=== PATIENT | male | born 1995 | race Caucasian/White ===

== ENCOUNTER 2021-02-26 10:22 | Emergency (ER) | payer OTHER, SELFPAY ==
--- NOTE | 2021-02-26 10:32 | ED.URI ---
HPI - URI/Sore Throat General Chief Complaint: Upper Respiratory Infection Stated Complaint: sorethroat,fever Time Seen by Provider: 02/26/21 10:32 Source: patient and RN notes reviewed History of Present Illness HPI Narrative: Patient is a 25-year-old male who presents the urgent care with complaints of a sore throat and fever for the last 2 days. Patient states that he always gets strep . Patient denies of any other upper respiratory complaints. Denies of any exposures to Covid. Patient states he has been vaccinated for Covid. States he has been taking Tylenol and ibuprofen. No other acute complaints. No acute distress noted. Patient read the plan of care. Some parts of this dictation were generated by voice recognition software and may contain typographical and/or grammatical inaccuracies. Related Data Home Medications Medication Instructions Recorded Confirmed guanfacine 2 mg PO DAILY 02/26/21 02/26/21 topiramate 25 mg BID 02/26/21 02/26/21 Allergies Allergy/AdvReac Type Severity Reaction Status Date / Time No Known Allergies Allergy Verified 02/26/21 10:58 Review of Systems Review of Systems: CONSTITUTIONAL: Reports a fever EYES: Denies visual changes, redness, or discharge. ENT: Denies rhinorrhea, congestion, otalgia. Reports of sore throat CARDIOVASCULAR: Denies chest pain, palpitations, or edema. RESPIRATORY: Denies cough or dyspnea. GASTROINTESTINAL: Denies abdominal pain, nausea, vomiting, or diarrhea. GENITOURINARY: Denies dysuria or hematuria. SKIN: Denies rash or itching. MUSCULOSKELETAL: Denies back pain, joint pain, or myalgia. NEUROLOGIC: Denies headache, numbness, or weakness. All other systems reviewed are negative, except as documented in HPI. [facility] Family History Family History (Updated 10/29/13 @ 07:13 by DOCTOR UNKNOWN) Sibling Asthma Social History Social History Smoking status: Current every day smoker Alcohol intake: never Substance use type: marijuana Comments At the time of my signature, I reviewed and agree with the nursing past medical, surgical, social, and family history. There is no relevant family history pertinent to the patient complaint. Exam Narrative: GENERAL: This is a well-nourished, well-developed patient, in no apparent distress. HEAD: normocephalic, atraumatic. EYES: PERRL. Sclera clear/white. Vision is grossly intact. EARS: External ears normal, auditory canals clear and without drainage, TMs normal without perforation. Hearing grossly intact. NOSE: External nose normal with no obvious nasal discharge, nares without redness, no rhinorrhea. THROAT: Mucous membranes moist. Moderate erythema noted to posterior pharynx with moderate postnasal drainage. No exudate. NECK: Neck supple, non-tender without lymphadenopathy CARDIOVASCULAR: Regular rate and rhythm without murmurs, gallops, or rubs. RESPIRATORY: Clear to auscultation. Breath sounds equal bilaterally. No wheezes, rales, or rhonchi. SKIN: warm, intact with no suspicious lesions or rash, good texture and turgor. NEURO: awake, alert, and oriented to person, place and time. There were no obvious focal neurologic abnormalities. EXTREMITIES: No clubbing, cyanosis, or edema. Course Vital Signs Vital signs: Vital Signs Temperature 97.5 F L 02/26/21 10:45 Pulse Rate 88 02/26/21 10:45 Respiratory Rate 18 02/26/21 10:45 Blood Pressure 139/78 02/26/21 10:45 Pulse Oximetry 100 02/26/21 10:45 Temperature 97.5 F L 02/26/21 10:45 Pulse Rate 88 02/26/21 10:45 Respiratory Rate 18 02/26/21 10:45 Blood Pressure 139/78 02/26/21 10:45 Pulse Oximetry 100 02/26/21 10:45 Reviewed MDM - URI/Sore Throat MDM Narrative Medical decision making narrative: Reviewed lab results with patient. He is aware that strep swab was negative. Educated patient on culture we will call within 72 hours if culture is positive and antibiotics necessary. Advised the patient to continue Tyl
[2021-02-26 10:45] VITALS: BP 139/78; PULSE 88; RESP 18; TEMP 36.4; O2SAT 100
== END 2021-02-26 11:11 | disposition home or self-care (01) ==
PROVIDERS: Emergency Provider Nurse Practitioner Family; PCP Family Medicine
DX: J02.9 Acute pharyngitis, unspecified (principal); Z20.822 Contact with and (suspected) exposure to COVID-19; F17.200 Nicotine dependence, unspecified, uncomplicated
CPT/HCPCS: 87081; 87880; 99213; G0463

== ENCOUNTER → 2021-02-27 07:51 | Outpatient (CLI) | payer OTHER, SELFPAY ==
[2021-02-27 19:04] LABS: SARS-CoV-2 RNA PCR Positive
== END ==
PROVIDERS: PCP Family Medicine; Visit Provider Nurse Practitioner Family
DX: U07.1 COVID-19 (principal); J02.9 Acute pharyngitis, unspecified
CPT/HCPCS: C9803; U0003; U0005

== ENCOUNTER 2022-08-07 10:36 | Emergency (ER) | payer SELFPAY ==
--- NOTE | 2022-08-07 10:45 | ED.SKABFB ---
HPI - Skin/Abscess/Foreign Bdy General Chief complaint: Urogenital-Male Stated complaint: cyst in nose,gum pain Time Seen by Provider: 08/07/22 10:45 Source: patient Mode of arrival: ambulatory Limitations: no limitations History of Present Illness HPI narrative: patient is a 26-year-old male who presents with abscess inside of left nostril. Patient states it started Saturday and has grown in size, patient popped it last night but states it filled back up this morning. Reports pain is surrounding left side of nose. Patient also reports burning with urination since Saturday but has had no frequency, urgency or blood in urine. Patient is not sexually active and has no concern for STDs. Denies any fever, chills, back pain, nausea, vomiting. Related Data Allergies Allergy/AdvReac Type Severity Reaction Status Date / Time No Known Allergies Allergy Verified 08/07/22 10:51 Review of Systems Review of Systems: All systems reviewed & are unremarkable except as noted in HPI and below Constitutional: Constitutional: Denies body ache(s), Denies chills, Denies fatigue, Denies fever(s), Denies headache(s), Denies malaise and Denies weakness Eyes: Eyes: Denies blurry vision, Denies irritation and Denies loss of vision ENT: Denies otalgia, Reports facial pain, Denies headache(s), Denies nasal discharge, Denies sinus pain and Denies sore throat Cardiovascular: Cardiovascular: Denies chest pain, Denies irregular heart rhythm and Denies dyspnea Respiratory: Respiratory: Denies dyspnea Gastrointestinal: Gastrointestinal: Denies abdominal pain, Denies melena, Denies hematochezia, Denies diarrhea, Denies nausea and Denies vomiting Genitourinary: Genitourinary: Reports dysuria Musculoskeletal: Musculoskeletal: Denies back pain, Denies myalgias and Denies arthralgias Integumentary/Breasts: Skin/Breast: Denies pruritus and Denies rash Neurologic: Denies headache(s), Denies loss of vision and Denies weakness Psychiatric: Psychiatric: Reports no additional psychiatric complaints Endocrine: Endocrine: Denies fatigue [facility] Family History Family History (Updated 10/29/13 @ 07:13 by DOCTOR UNKNOWN) Sibling Asthma Social History Social History Smoking status: Current every day smoker Alcohol intake: never Substance use type: marijuana Comments At time of signature, agree with nursing past medical, surgical, social and family history. There is no relevant family history pertinent to the presenting complaint. Exam Const: General: cooperative, healthy appearing, comfortable, no acute distress and well nourished Nutritional Appearance: well nourished Orientation/consciousness: patient oriented x3 Limitations: no limitations HENMT: Head: normal to inspection, normocephalic and atraumatic Ears: hearing grossly normal bilaterally and external ears normal Face/Nose/Sinus: Normal external nose present, normal facial exam and face symmetric Nose image: 1. Small pimple like vesicle noted. Crusted over with no active drainage. 2. This area of induration, no fluctuance. No erythema or warmth noted Face and sinus: normal facial exam and face symmetric Mouth: Yes lip normal Eyes: General: appearance normal, both eyes and all related structures Alignment and Position: alignment normal and position normal Periorbital: periorbital findings normal Eyelids: eyelids normal Pupils: Equal, round and reactive pupils present EOM: EOMs intact bilaterally Neck: Neck: normal visual inspection, full ROM and supple Chest: Chest palpation & inspection: normal inspection of the chest Resp: Effort & Inspection: normal respiratory effort and able to speak in complete sentences Auscultation: clear to auscultation bilaterally Cardio: Rate: regular rate Rhythm: regular rhythm Heart sounds: S1 normal heart sound present and S2 normal heart sound present GI: Inspection: normal to inspection Skin: General skin exam: normal color and
[2022-08-07 10:52] VITALS: BP 148/73; PULSE 74; RESP 16; TEMP 36.6; O2SAT 99
== END 2022-08-07 12:17 | disposition home or self-care (01) ==
PROVIDERS: Emergency Provider Nurse Practitioner Family
DX: J34.0 Abscess, furuncle and carbuncle of nose (principal); R30.0 Dysuria; F17.200 Nicotine dependence, unspecified, uncomplicated
CPT/HCPCS: 81003; 99213; G0463

== ENCOUNTER 2023-05-30 10:22 | Emergency (ER) | payer SELFPAY ==
--- NOTE | 2023-05-30 10:24 | ED.UPPEXIN ---
HPI - Extremity Injury (Upper) General Chief Complaint: Extremity Problem,Nontraumatic Stated Complaint: Right Shoulder Pain Time Seen by Provider: 05/30/23 10:22 Source: patient Mode of arrival: ambulatory Limitations: no limitations History of Present Illness HPI narrative: Patient is a 27-year-old male that presents with right shoulder pain for 4 days. Patient denies any obvious injury. Patient has been lifting in having repetitive motion at work along with picking up 2-year-old at home. Denies any numbness, tingling or weakness to extremity. Has taken Tylenol and ibuprofen with no relief. Reports movement worsens pain. Related Data Allergies Allergy/AdvReac Type Severity Reaction Status Date / Time No Known Allergies Allergy Verified 05/30/23 10:37 Review of Systems Review of Systems: All systems reviewed & are unremarkable except as noted in HPI and below Constitutional: Constitutional: Denies body ache(s), Denies chills, Denies fatigue, Denies fever(s), Denies headache(s), Denies malaise and Denies weakness Eyes: Eyes: Denies blurry vision, Denies irritation and Denies loss of vision ENT: Denies otalgia, Denies headache(s), Denies nasal discharge, Denies sinus pain and Denies sore throat Cardiovascular: Cardiovascular: Denies chest pain, Denies irregular heart rhythm and Denies dyspnea Respiratory: Respiratory: Denies dyspnea Gastrointestinal: Gastrointestinal: Denies abdominal pain, Denies melena, Denies hematochezia, Denies diarrhea, Denies nausea and Denies vomiting Musculoskeletal: Musculoskeletal: Denies back pain, Denies myalgias and Reports arthralgias Integumentary/Breasts: Skin/Breast: Denies pruritus and Denies rash Neurologic: Denies headache(s), Denies loss of vision and Denies weakness Psychiatric: Psychiatric: Reports no additional psychiatric complaints Endocrine: Endocrine: Denies fatigue PMFSH Family History Family History Sibling Asthma Social History Social History Smoking status: Current every day smoker Alcohol intake: never Substance use type: marijuana Comments At time of signature, agree with nursing past medical, surgical, social and family history. There is no relevant family history pertinent to the presenting complaint. Exam Const: General: cooperative, healthy appearing, comfortable, no acute distress and well nourished Nutritional Appearance: well nourished Orientation/consciousness: patient oriented x3 Limitations: no limitations HENMT: Head: normal to inspection, normocephalic and atraumatic Ears: hearing grossly normal bilaterally and external ears normal Face/Nose/Sinus: Normal external nose present, normal facial exam and face symmetric Face and sinus: normal facial exam and face symmetric Mouth: Yes lip normal Eyes: General: appearance normal, both eyes and all related structures Alignment and Position: alignment normal and position normal Periorbital: periorbital findings normal Eyelids: eyelids normal Pupils: Equal, round and reactive pupils present EOM: EOMs intact bilaterally Neck: Neck: normal visual inspection, full ROM and supple Chest: Chest palpation & inspection: normal inspection of the chest Resp: Effort & Inspection: normal respiratory effort and able to speak in complete sentences Auscultation: clear to auscultation bilaterally Cardio: Rate: regular rate Rhythm: regular rhythm Heart sounds: S1 normal heart sound present and S2 normal heart sound present GI: Inspection: normal to inspection Skin: General skin exam: normal color and no rashes or lesions noted Neuro: General: patient oriented x3 and moves all extremities Cranial nerves: Yes Equal, round and reactive pupils present Speech: normal speech Gait exam (Neuro): Normal gait present Extrem: General: normal to inspection, full ROM and no edema Right upper ext
[2023-05-30 10:31] VITALS: BP 113/72; PULSE 62; RESP 18; TEMP 36.7; O2SAT 100
== END 2023-05-30 11:06 | disposition home or self-care (01) ==
PROVIDERS: Emergency Provider Nurse Practitioner Family
DX: S46.911A Strain of unspecified muscle, fascia and tendon at shoulder and upper arm level, right arm, initial encounter (principal); X58.XXXA Exposure to other specified factors, initial encounter; F17.200 Nicotine dependence, unspecified, uncomplicated
CPT/HCPCS: 99213; G0463

== ENCOUNTER 2023-07-14 14:39 | Emergency (ER) | payer SELFPAY ==
[2023-07-14 14:48] VITALS: BP 135/82; PULSE 52; RESP 18; TEMP 36.5; O2SAT 100
[2023-07-14 14:49] VITALS: BP 135/82; PULSE 52; RESP 18; TEMP 36.5; O2SAT 100
--- NOTE | 2023-07-14 15:04 | ED.DENTAL ---
HPI - Dental/Oral General Chief complaint: Dental/Oral Stated complaint: Toothache Time Seen by Provider: 07/14/23 14:55 Source: patient and RN notes reviewed Mode of arrival: ambulatory Limitations: no limitations History of Present Illness HPI Narrative: Patient presents today complaining of right upper tooth pain since yesterday. States he has multiple broken teeth, but does localize his pain to 1 area. Currently rates his pain 10/10. He has been taking excessive amounts of ibuprofen over the last 24 hours. He also took 2 doses of leftover amoxicillin. Denies fever, difficulty swallowing, or shortness of breath. States he does have a dentist and has left voicemail to make an appointment. Related Data Allergies Allergy/AdvReac Type Severity Reaction Status Date / Time No Known Allergies Allergy Verified 07/14/23 14:49 Review of Systems Review of Systems: CONSTITUTIONAL: Denies body aches, fever, chills, or sweats. EYES: Denies visual changes, redness, or discharge. ENT: Denies rhinorrhea, congestion, sore throat, or otalgia.+ tooth pain CARDIOVASCULAR: Denies chest pain, palpitations, or edema. RESPIRATORY: Denies cough or dyspnea. GASTROINTESTINAL: Denies abdominal pain, nausea, vomiting, or diarrhea. GENITOURINARY: Denies dysuria or hematuria. SKIN: Denies rash, itching, or wounds. MUSCULOSKELETAL: Denies back pain, joint pain, or myalgia. NEUROLOGIC: Denies headache, numbness, tingling, or weakness. PSYCH: Denies depression or anxiety. [facility] Family History Family History Sibling Asthma Social History Social History Smoking status: Current every day smoker Alcohol intake: never Substance use type: marijuana Comments At time of signature, I have reviewed and agree with nursing past medical, surgical, social and family history unless otherwise noted. Please see nursing chart for further information. There is no relevant family history pertinent to the presenting complaint Exam Narrative: GENERAL: Well-appearing, well-nourished, and in no acute distress. HEAD: Normocephalic, atraumatic. EYES: EOMI. No redness or drainage. Conjunctivae normal. ENT: Mucous membranes pink and moist. Gross dental decay. Localized pain to tooth #3. Affected tooth has a large brown cavity in the center. No trismus or facial swelling noted. No gingival swelling or obvious periapical abscess noted. NECK: Normal AROM. CHEST: No respiratory distress. EXTREMITIES: Normal range of motion. No edema. SKIN: Warm, dry, no rash. Capillary refill normal. Normal skin turgor. NEURO: No focal deficits. Alert and oriented x3. Gait steady. PSYCH: Normal affect. No signs of depression or anxiety. Course Course Level of Care: Express Care Visit Vital Signs Vital signs: Vital Signs Temperature 97.7 F 07/14/23 14:48 Pulse Rate 52 L 07/14/23 14:48 Respiratory Rate 18 07/14/23 14:48 Blood Pressure 135/82 07/14/23 14:48 Pulse Oximetry 100 07/14/23 14:48 Oxygen Delivery Room Air 07/14/23 14:48 Temperature 97.7 F 07/14/23 14:49 Pulse Rate 52 L 07/14/23 14:49 Respiratory Rate 18 07/14/23 14:49 Blood Pressure 135/82 07/14/23 14:49 Pulse Oximetry 100 07/14/23 14:49 Oxygen Delivery Room Air 07/14/23 14:49 Reviewed MDM - Dental/Oral MDM Narrative Medical decision making narrative: Patient will be treated with a course of amoxicillin for likely infection. He has been recommended to follow-up with a dentist as soon as possible. Anticipatory guidance given. Differential Diagnosis Differential diagnosis: Likely gingival abscess, dental caries, toothache, dental abscess and fracture of tooth Critical Care Time Critical Care Time Critical Care Time: No Discharge Plan Discharge Clinical Impression: Infected dental caries Patient Disposition: Home, [place]
== END 2023-07-14 15:12 | disposition home or self-care (01) ==
PROVIDERS: Emergency Provider Nurse Practitioner
DX: K02.9 Dental caries, unspecified (principal); F17.200 Nicotine dependence, unspecified, uncomplicated; F12.90 Cannabis use, unspecified, uncomplicated
CPT/HCPCS: 99213; G0463

== ENCOUNTER 2023-10-16 13:45 | Emergency (ER) | payer SELFPAY ==
--- NOTE | ~2023-10-16 | XR_ITS ---
XR chest 2V Ordering provider: Hina Crum MD History: 28 years Male with . syncope . Comparison: July 21, 2012 FINDINGS: MEDIASTINUM: The cardiac silhouette is not enlarged. LUNGS: No infiltrates, effusions or pneumothorax. OTHER: No free air under the diaphragm. IMPRESSION: No acute cardiopulmonary pathology. Reviewed, dictated and finalized at location A.
--- NOTE | ~2023-10-16 | CT_ITS ---
CT brain wo con Ordering provider: Aminata Head APRN History: 28 years Male with . fall . Comparison: December 02, 2006 Technique: CT of the head without contrast. Radiation reduction technique utilized. The dose-length product was 605.33 mGy-cm. FINDINGS: BRAIN PARENCHYMA AND CSF SPACES: No midline shift, mass effect or hemorrhage. The brain parenchyma a nd CSF spaces are otherwise normal. VISUALIZED PARANASAL SINUSES: Well aerated. MASTOIDS: Well aerated. BONES: The bones appear intact. SOFT TISSUES: Visualized nasopharynx is normal. Superficial soft tissues are normal. IMPRESSION: No acute intracranial findings. Reviewed, dictated and finalized at location A.
--- NOTE | 2023-10-16 13:48 | ECG_ITS ---
Test Date: 2023-10-16 13:52:02 Measurements Intervals [place] Rate: 63 P: 41 UT: 104 QRS: 80 QRSD: 86 T: 43 QT: 365 QTc: 374 Interpretive Statements SINUS RHYTHM WITH SHORT UT INTERVAL No previous ECG available for comparison Electronically Signed On 10-17-2023 09:48:37 CDT by Tiburcio Napier M.D.
[2023-10-16 13:52] VITALS: BP 141/84; PULSE 74; RESP 18; TEMP 37.4; O2SAT 99
[2023-10-16 14:07] LABS: Basophils Percent Auto 0.3 % (0.2-1.2); Eosinophils Absolute Auto 0.1 K/mm3 (0-0.3); Eosinophils Percent Auto 0.7 % (0-4.4); Hematocrit 42.3 % (42.0-52.0); Hemoglobin 14.4 g/dL (14.0-18.0); Immature Granulocyte Absolute 0.03 K/mm3 (0.00-0.031); Immature Granulocyte Percent A 0.3 % (0-0.5); Lymphocytes Absolute Auto 2.16 K/mm3 (0.9-3.2); Mean Corpuscular Hemoglobin 29.6 pg (26-34); Mean Platelet Volume 9.4 fl (7.4-10.4); Monocytes Absolute Auto 0.8 K/mm3 (0.1-0.6); Monocytes Percent Auto 8.4 % (2.6-8.5); Neutrophils Percent Auto 66.3 % (45.5-73.1); Platelet Count Result 272 k/mm3 (150-375); Red Blood Count 4.86 M/mm3 (4.6-6.20); Red Cell Distribution Width 12.5 % (11.5-14.5)
--- NOTE | 2023-10-16 14:22 | ED.GENADULT ---
HPI - General Adult General Chief complaint: Syncope Stated complaint: syncopy Time Seen by Provider: 10/16/23 13:53 History of Present Illness HPI narrative: Stevie Mckeon is a 28 y/o male who presents today [facility] reports of having a syncope yesterday. He states that he has No PMHx/ not on any daily medications, yesterday after working he was in the shower and then felt the room spinning and weak and slipped and fell, he was able to get up out of the bath and he went to bed. He woke up feeling well and then today he has felt fatigued with some SOB today that is new. No recent illness/ cough/ Fever. Related Data Home Medications Medication Instructions Recorded Confirmed No Home Medications 10/16/23 10/16/23 Allergies Allergy/AdvReac Type Severity Reaction Status Date / Time No Known Allergies Allergy Verified 10/16/23 13:58 Review of Systems Review of Systems: All systems reviewed & are unremarkable except as noted in HPI and below PMFSH Family History Family History Sibling Asthma Social History Social History Smoking status: Current every day smoker Alcohol intake: never Substance use type: marijuana Exam Narrative: GENERAL: Well-appearing, well-nourished, and in no acute distress. HEAD: Normocephalic, atraumatic. EYES: PERRLA and EOMI. ENT: Nares clear, no rhinorrhea or epistaxis. Mucous membranes moist. Oropharynx without tonsillar hypertrophy exudate or other lesions. Bilateral TMs pearly figueredo nonbulging NECK: Supple. No adenopathy or masses. No carotid bruits or JVD CHEST: Clear to auscultation. No respiratory distress. No wheezes rales or rhonchi HEART: Regular rate and rhythm. No murmur heard. Normal peripheral pulses. ABDOMEN: Soft, nontender, nondistended, normal active bowel sounds. EXTREMITIES: Normal range of motion. No edema. SKIN: Warm, dry, no rash. NEURO: No focal deficits. Alert and oriented x3. PSYCH: Normal mood and affect. Course Vital Signs Vital signs: Vital Signs Temperature 37.4 C 10/16/23 13:52 Pulse Rate 74 10/16/23 13:52 Respiratory Rate 18 10/16/23 13:52 Blood Pressure 141/84 H 10/16/23 13:52 Pulse Oximetry 99 10/16/23 13:52 Oxygen Delivery Room Air 10/16/23 13:52 Temperature 37.4 C 10/16/23 13:52 Pulse Rate 62 10/16/23 14:58 Respiratory Rate 19 10/16/23 14:58 Blood Pressure 132/80 10/16/23 14:58 Pulse Oximetry 99 10/16/23 14:58 Oxygen Delivery Room Air 10/16/23 13:52 Medical Decision Making MDM Narrative Medical decision making narrative: 28 y/o male with reports of having a syncope yesterday evening and fell. He felt well this AM but then started to feel increased fatigued/ tired and felt some SOB that was new His exam today is unremarkable / no neuro deficits CBC- unremarkable CMP unremarkable D-Dimer- negative Trop- Negative UA - + ketones UDS- + marijuana VIral swabs- Negative Head CT- No acute intracranial findings. Chest XR-No acute cardiopulmonary pathology. EKG- NSR Patient treated with NS bolus, Patient re-evaluated and he states he is feeling a lot better, and agrees that he was likely dehydrated since he never drinks water only soda He feels comfortable with d/c and close PCP follow up Return precautions provided,he verbalizes understanding and denies needing anything further Medical Records Medical records reviewed: Yes I reviewed the external patient's medical records. Vital Signs Vital Signs: Vital Signs Temperature 37.4 C 10/16/23 13:52 Pulse Rate 74 10/16/23 13:52 Respiratory Rate 18 10/16/23 13:52 Blood Pressure 141/84 H 10/16/23 13:52 Pulse Oximetry 99 10/16/23 13:52 Oxygen Delivery Room Air 10/16/23 13:52 Temperature 37.4 C 10/16/23 13:52 Pulse Rate 62 10/16/23 14:58 Respiratory Rate 10/16/23 14:58 Blood Press
[2023-10-16 14:23] LABS: Alanine Aminotransferase 20 U/L (6-50); Albumin Level 4.8 g/dL (3.5-5.1); Alkaline Phosphatase 42 U/L (38-126); Anion Gap 12 mmol/L (4-12); Aspartate Amino Transferase 34 U/L (17-59); Bilirubin,Total 0.8 mg/dL (0.2-1.3); Blood Urea Nitrogen 9 mg/dL (9-20); Calcium 9.2 mg/dL (8.4-10.2); Carbon Dioxide 24 mmol/L (22-30); Chloride 102 mmol/L (98-107); Estimated CRCL calculation 107 ml/min; Estimated Glomerular Filt Rate > 60; Glucose 98 mg/dL (65-110); Potassium 3.8 mmol/L (3.4-5.0); Sodium 138 mmol/L (137-145)
[2023-10-16 14:51] LABS: Troponin I < 0.012 ng/mL (0.000-0.034)
[2023-10-16 14:58] VITALS: BP 132/80; PULSE 62; RESP 19; O2SAT 99
[2023-10-16] MEDS: SODIUM CHLORIDE 0.9% IV 1,000 ML 999 ML IV CONT (14:58)
[2023-10-16 15:39] LABS: D Dimer 0.27 ug/mL (<0.48)
[2023-10-16 15:48] LABS: Influenza A QL RT-PCR Negative (Negative); Influenza B QL RT-PCR Negative (Negative); RSV RNA, RT-PCR Negative (Negative); SARS-CoV-2 RNA PCR Negative (Negative)
[2023-10-16 16:28] LABS: Add Urine Microscopic? NO; Appearance Urine Clear (Clear); Bilirubin Urine Negative (Negative); Blood Urine Negative (Negative); Color Urine Yellow (Yellow); Glucose Urine UA Negative (Negative); Ketones Urine Trace mg/dL (Negative); Leukocyte Esterase Ur Negative LEU/UL (Negative); Nitrate Urine Negative (Negative); Protein Urine Negative (Negative); Specific Grav Ur 1.007 (1.001-1.035); Urobilinogen Urine 0.2 mg/dL (<2.0); pH Urine 6.5 (5.0-9.0)
[2023-10-16 16:44] LABS: Amphetamine Screen Urine Negative (Negative); Barbiturate Screen Urine Negative (Negative); Benzodiazepines Screen Urine Negative (Negative); Cannabinoid Screen Urine Positive (Negative); Cocaine Screen Urine Negative (Negative); Methadone Screen Urine Negative (Negative); Opiate Screen Urine Negative (Negative); Phencyclidine Screen Urine Negative (Negative)
[2023-10-16 18:05] VITALS: BP 121/73; PULSE 72; RESP 18; TEMP 36.6; O2SAT 99
== END 2023-10-16 18:06 | disposition home or self-care (01) ==
PROVIDERS: Emergency Medicine; Emergency Provider Nurse Practitioner Family
DX: R55 Syncope and collapse (principal); E86.0 Dehydration; Z20.822 Contact with and (suspected) exposure to COVID-19; F17.200 Nicotine dependence, unspecified, uncomplicated
CPT/HCPCS: 36415; 70450; 71046; 80053; 80307; 81003; 84484; 85025; 85380; 87637; 93005; 96360; 99284; J7030